=== PATIENT | female | born 1960 | race Caucasian/White ===

== ENCOUNTER 2018-04-24 14:39 | Outpatient (CLI) | payer BC ==
--- NOTE | 2018-04-24 15:48 | MRI ---
MRI OF THE RIGHT KNEE WITHOUT CONTRAST: INDICATION: Right knee pain. FINDINGS: There is a full-thickness radial tear involving the posterior root of the medial meniscus. There is a vertically oriented tear component extending from the root into the posterior horn. The lateral me niscus is intact. The ACL, PCL, MCL, and LCLC are intact. The extensor mechanism is intact. There is moderate joint capsular distention. There is a small semimembranosus-medial gastrocnemius poplite al cyst. IT band and popliteus appear within normal limits. IMPRESSION: Medial meniscal tear. POS: [facility]
== END 2018-04-24 14:40 | disposition home or self-care (01) ==
LOC: SCSMRI 14:39
PROVIDERS: ATTEND Orthopaedic Surgery
DX: M23.91 Unspecified internal derangement of right knee (principal); S83.241A Other tear of medial meniscus, current injury, right knee, initial encounter